=== PATIENT | female | born 1985 | race Caucasian/White ===

== ENCOUNTER 2024-10-10 11:41 | Emergency (ER) | payer OTHER, SELFPAY ==
[2024-10-10 12:30] VITALS: BP 132/78; PULSE 74; RESP 16; TEMP 36.6; O2SAT 100
[2024-10-10] MEDS: TETANUS,DIPHTHERIA,AC PERTUSSIS ADULT (0.5 ML) BOOSTRIX (12:38)
[2024-10-10] MEDS: LIDO 1%/EPINEPHRINE 1:100,000 20 ML VIAL (12:39)
--- OUTSIDE RECORDS SUMMARY | 2024-10-10 12:52 | XMS_ITS ---
Author Organization [facility] Address [address], [place] [id number] Care Team Providers Care Whirley Operator Name Role Phone HAVEN PRYOR Primary Care Provider REASON FOR VISIT 4 week FU Encounters Encounter Location Date Provider Diagnosis [facility] [address], [place] [id number] 01/02/2024 HAVEN PRYOR Plan Of Treatment No Information Progress Notes * Jaz JOHNSTON KDOB:1985 (39 yo F)Acc No.[id number]:01/02/2024 Progress Notes Patient: Adam GONSALES Amryan Gottlieb Provider: Yobany PRYOR MD :1985 A ge:38 Y S ex:Female Date:01/02/2024 Address:[address] [place], [place] [id number] Subjective: * Chief Complaints: * 1 . 4 week FU. * Medical History: Objective: * Vitals: Assessment: Plan: * Treatment: * * Electronic signature of CARITO PRYOR MD on 10/10/2024 at 12:52 PM CDT Sign off status: Pending * Provider: Yobany PRYOR MD Date: 01/02/2024 Generated for Asadi ng/Fageraldine/eTransmitting on: 10/10/2024 12:52 PM CDT
--- OUTSIDE RECORDS SUMMARY | 2024-10-10 12:52 | XMS_ITS | Patient Health Record ---
Author Organization [facility] Address [address] [place] [address] Care Team Providers Care Desulphurizer Operator Name Role Phone Lela White Primary Care Provider Unavailabl e Allergies No Known Allergies Reason For Referral No Information Medications Medication SIG (Take, Route, Frequency, Duration) Notes Start Date End Date Status Magnesium 300 MG 1 capsule with a aundrea l Orally Once a day Active Cetirizine HCl 10 MG 1 tablet Orally Onc e a day Active Flonase Allergy Relief 50 MCG/ACT 1 spray in each nostril Nasally Once a day Active traMADol HCl 50 MG 1 tablet as needed Orally Once a day Active Cyclobenzaprine HCl 10 MG 1 tablet Orall y three times daily Active Levonorgest-Eth Estrad 91-Da y 0.15-0.03 MG 1 tablet Orally Once a day Active Omeprazole 10 MG 1 capsule 30 minutes before morning meal Orally Once a day Active Plan Of Treatment No Information Insurance Providers Payer Name Payer Address Payer Phone Subscriber Number Group Number Insured Name Patient Relationship to Insured Coverage Start Date Coverage End Date [facility] PPO [address] [place], [place] [phone] [id number] Dionicio Andrea Spouse - patient is the spouse of the insured Medical (General) History Medical History History ICD Code psoriasis
--- OUTSIDE RECORDS SUMMARY | 2024-10-10 12:52 | XMS_ITS ---
Author Organization [facility] Address [address], [place] [phone] Care Team Providers Care Manual Training Teacher Name Role Phone HAVEN PRYOR Primary Care Provider YINKA MUNOZ Unavailable [phone] REASON FOR VISIT refills (deniz pt) Medications Medication SIG (Take, Route, Frequency, Duration) Notes Start Date End Date Status Cyclobenzaprine Hydrochlorid e 10 mg 1 tab(s) orally 3 times a day as needed for 90 days Active SUMAtriptan 100 mg 1 tab(s) orally once for 90 days PRN Active Encounters Encounter Location Date Provider Diagnosis [facility] [address], [place] [id number] 07/23/2024 YINKA MUNOZ Migraine G43.909 and Chronic neck pain M54.2 Assessments Encounter Date Diagnosis (ICD Code) Assessment Notes Treatment Notes Treatment Clinical Notes Section Notes 07/23/2024 Migraine (ICD-10 - G43.909) 07/23/2024 Chronic neck pain (ICD-10 - M54.2) Plan Of Treatment Medication Medication Name Sig Start Date Stop Date Notes Cyclobenzaprine Hydrochlorid e 10 mg 1 tab(s) orally 3 times a day as needed for 90 days SUMAtriptan 100 mg 1 tab(s) orally once for 90 days PRN Progress Notes * Jaz JOHNSTON KDOB:1985 (39 yo F)Acc No.[id number]:07/23/2024 Patient: Adam DRU Jaz Gottlieb :1985 A ge:39 Y S ex:Female Address[address] [place] [address] * Refills refill SUMAtriptan tablet, 100 mg, orally, 30, 1 tab(s), once, 90 days, Refills=3 refill Cyclobenzaprine Hydrochloride tablet, 10 mg, orally, 180, 1 tab(s), 3 times a day as needed, 90 days, Refills=3 * true * Date: Generated for Montez calero/Ernesto/Kayitting on: 0 10/10/2024 12:52 PM CDT
--- OUTSIDE RECORDS SUMMARY | 2024-10-10 12:53 | XMS_ITS | Patient Health Record ---
Author Organization [facility] [place] [place] Address [address], [place] [id number] Care Team Providers Care Forest Fire Specialist Supervisor Name Role Phone HAVEN WHITE Primary Care Provider YINKA MUNOZ Unavailable [phone] MARIOSHANE Unavailable [phone] Allergies No Known Allergies Results Component Value Reference Range Notes CBC With Diff Reviewed date:12/03/2023 03:23:50 PM Interpretation: Performing Lab: Notes/Report: REASON FOR EXAM? R42; R00.0; R06.00 WBC 5.9 3.6-11.5 10 3/UL RBC 4.89 3.74-5.08 10 6/UL HGB 15.3 11.5-15.2 G/DL HCT 46 34-44 % PLAT COUNT 260 151-407 10 3/UL MCV 94 81-98 FL MCH 31 28-34 PG MCHC 33 32-36 G/DL RDW-SD 43.8 35.4-50.0 FL RDW-CV 13.4 11.1-14.9 % MPV 7.5 8.1-12.4 FL NEUT % 56.7 LYMPH % 35.7 MONO % 4.1 EO % 3.2 BASO % 0.3 NEUT ABS 3.3 1.8-7.7 10 3/UL LYMPH ABS 2.1 1.0-4.0 10 3/UL MONO ABS 0.2 0.0-0.8 10 3/UL EO ABS 0.2 0.00-0.40 10 3/UL BASO ABS 0.0 0.00-0.20 10 3/UL [facility] CLIA ID: [id number] / [id number] Simone Lebron MD [address] [place] [address] THIS TEST WAS PERFORMED AT: [facility] Comprehensive Metabolic Profile (95472) Reviewed date:12/03/2023 03:23:50 PM Interpretation: Performing Lab: Notes/Report: REASON FOR EXAM? R42; R00.0; R06.00 NA 137 136-145 MMOL/L K 4.1 3.5-5.1 MMOL/L CL 106 98-107 MMOL/L CO2 21 21-31 MMOL/L ANION GAP 10.0 3.0-11.0 MMOL/L GLU RANDOM 83 BUN 5 7-25 MG/DL CREAT 0.83 0.60-1.20 MG/DL GLOM TAMIKA RATE 92 UNITS ML/MIN/1.73 M2 DISEASE. A GFR LESS THAN 15 IS CONSIDERED TO HAVE KIDNEY A GFR LESS THAN 60 IS CONSIDERED TO HAVE CHRONIC KIDNEY FAILURE. CALCULATED USING 4 PARAMETER MDRD (2000 REVISION). CA 9.9 8.6-10.3 MG/DL T PROT 7.8 6.4-8.9 G/DL ALB 4.6 3.5-5.7 G/DL GLOB 3.2 0.7-5.4 G/DL A/G 1.4 1.0-2.8 RATIO BILI T 0.4 0.3-1.0 MG/DL ALK PHOS 44 34-104 IU/L AST 23 13-39 IU/L ALT 22 7-52 IU/L THIS TEST WAS PERFORMED AT: [address], [place] [address] [facility] Simone Lebron MD CLIA ID: [id number] / [id number] D-Dimer ([id number]) Reviewed date:12/03/2023 03:23:50 PM Interpretation: Performing Lab: Notes/Report: REASON FOR EXAM? R42; R00.0; R06.00 D-DIMER 243 70-500 NG/MLFEU Simone Lebron MD [facility] THIS TEST WAS PERFORMED AT: [address] VALUE LESS THAN 500NG/ML FEU SUPPORTS ABSENCE OF [place] [address] REQUIRED. SIGNIFICANT THROMBOEMBOLIC EVENT. CLINICAL CORRELATION CLIA ID: [id number] / [id number] Magnesium (72381) Reviewed date:12/03/2023 03:23:50 PM Interpretation: Performing Lab: Notes/Report: REASON FOR EXAM? R42; R00.0; R06.00 MG 2.2 1.9-2.7 MG/DL THIS TEST WAS PERFORMED AT: [address], [place] [address] Simone Lebron MD CLIA ID: [id number] / [id number] EKG Reviewed date:12/09/2023 08:51:16 AM Interpretation:See report Performing Lab: Notes/Report: See report Holter Monitor (48 Hour) Reviewed date:12/24/2023 09:19:31 AM Interpretation:See report Performing Lab: Notes/Report: See report Test Serum Reviewed date:12/10/2023 01:35:44 PM Interpretation:Negative Performing Lab: Notes/Report: REASON FOR EXAM? N92.6 HCG (PREG TEST) NEGATIVE THIS TEST WAS PERFORMED AT: Simone Lebron MD [facility] [place] CLIA ID: [id number] / [id number] [place] [address] [address] Reason For Referral No Information Medications Medication SIG (Take, Route, Frequency, Duration) Notes Start Date End Date Status Flonase 50 mcg/inh 1 spray(s) intranasa lly once a day for 90 days Active SUMAtriptan 100 mg 1 tab(s) orally once for 90 days Active SUMAtriptan Succinate 6 mg/0.5 mL Inject 6mg subcutaneously once at onset of migraine, may repeat in 1 hour, Maximum 12mg in 24 hours for 30 days Active TraMADol Hydrochloride 50 mg 1 tab(s) orally Q 4-6 hr prn for 10 days 08/10/2024 Active Magnesium 1 tab(s) Orally Once Daily 100mg Active Ondansetron Hydrochloride 4 mg 1 tab(s) orally 3 times a day for 7 days PRN 07/09/2023 Active Wegovy (0.25 mg dose) 0.25 mg/0.5 mL (0.25 mg dose) 0.25mg subcutaneously once a week for 28 days 07/15/2023 Not-Taki ng Simpesse biphasic extended cycle TAKE 1 TABLET BY MOUTH DAILY for 91 Active Ondansetron Hydrochloride 8 mg 1 tab(s) orally once PRN 07/09/2023 Active Ventolin HFA 90 mcg/inh 2 puff(s) inhale d every 4-6 hours as needed for shortness of breath for 14 days 07/31/2023 Not-Taking biotin 2.5 mg 1 tab(s) orally once a day Active Cyclobenzaprine Hydrochloride 10 mg 1 tab(s) orally 3 times a day as needed for 90 days Active multivitamin Multiple Vitamins 1 tab(s) orally once a day Active predniSONE 10 mg 4 tabs for 3 days, t hen 3 tabs for 3 days, then 2 tabs for 3 days, then 1 tab for 3 days, then stop orally once a day for 12 days 07/31/2023 Not-Taking lisinopril 20 mg 1 tab(s) orally once a day for 90 days 12/08/2023 Active Needle 23g 1 , 100 for 90 days 11/21/2022 Active Zofran 8 mg 1 tab(s) orally 3 ti mes a day as needed for nausea for 14 day(s) PRN Not-Taking ZyrTEC 10 mg 1 tab(s) orally 2 ti mes a day Active omeprazole 20 mg 1 cap(s) orally two times daily for 90 days Active Immunizations Vaccine Route Administration Date Status Comme nts Fluarix Quadrivalent (6mo+) Unknown 02/21/2020 Administ ered Influenza Unknown 02/20/2016 Administered Influenza Unknown 02/17/2017 Administered Influenza Unknown 02/16/2018 Administered Influenza Unknown 02/17/2019 Administered Social History Tobacco Use: Social History Observation Description Date Details (start date - stop date) Never Smoker NA - NA Tobacco Use: Question Answer Notes Are you a: nonsmoker never smoked Alcohol Screening: Question Answer Notes Did you have a drink contain ing alcohol in the past year? Yes How often did you have a dri nk containing alcohol in the past year? Two to four times a month (2 points) How many drinks did you have on a typical day when you were drinking in the past year? 1 or 2 (0 points) How often did you have six o r more drinks on one occasion in the past year? Less than monthly (1 point) Points 3 Interpretation Positive Problems Problem Type SNOMED Code ICD Code Onset Dates Problem Status W/U Status Risk Notes Problem Chronic neck pain (4227578709578) Chronic neck pain (M54.2) Active confirmed Problem Gastroesophageal reflux disease (830770835) GERD (gastroesophage al reflux disease) (K21.9) Active confirmed Problem Migraine (10149295) Migraine (G43.909) Active confirmed Problem 5950552 Psoriasis (L40.9) Active confirmed Problem 63793644 Missed period (N92.6) Active confirmed Problem Chronic interstitial cystitis (327168904) Interstitial cystitis (N30.10) Active confirmed Problem 971505107 BMI 40.0-44.9, adult (Z68.41) Active confirmed Problem Seasonal allergic rhinitis (025806561) Seasonal allergic rhinitis (J30.2) Active confirmed Problem 64399555 Primary hypertension (I10) Active confirmed Problem 781631892 BMI 45.0-49.9, adult (Z68.42) Active confirmed Problem Obese class II (914987955853573) BMI 35.0-35.9,adult (Z68.35) Active confirmed Problem 441858104 Mild intermittent reactive airway disease without complication (J45.20) Active confirmed Vital Signs Heart Rate 96 /min 12/08/2023 Temperature 97.7 degrees Fahrenheit 12/08/2023 Respiratory Rate 20 /min 12/08/2023 Oximetry 98 12/08/2023 Blood pressure diastolic 78 mm Hg 12/08/2023 Height 63 in 12/08/2023 Blood pressure systolic 118 mm Hg 12/08/2023 Weight 221.6 lbs 12/08/2023 BMI 39.25 kg/m2 12/08/2023 Encounters Encounter Location Date Provider Diagnosis [facility] [address], [place] [id number] 12/09/2023 HAVEN WHITE Missed period N92.[address] [facility] [place] [place] [address], [place] [id number] 12/30/2023 HAVEN WHITE Chronic neck pain M54.[address] [facility] [place] [place] [address], [place] [id number] 07/23/2024 YINKA MUNOZ Migraine G43.909 and Chronic neck pain M54.2 [facility] [address], [place] [phone] 12/03/2023 [facility] [address], [place] [id number] 12/09/2023 HAVEN WHITE [facility] [address], [place] [id number] 12/08/2023 HAVEN WHITE Primary hypertension I10 and Palpitations R00.[address] [facility] [place] [place] [address], [place] [id number] 12/03/2023 SHANE MARTIN Dizziness R42 ; Tachycardia R00.0 and Dyspnea, unspecified type R06.00 Assessments Encounter Date Diagnosis (ICD Code) Assessment Notes Treatment Notes Treatment Clinical Notes Section Notes 12/03/2023 Dizziness (ICD-10 - R42) 12/03/2023 Tachycardia (ICD-10 - R00.0) 12/08/2023 Palpitations (ICD-10 - R00.2) Xochitl Sherman LPN 12/08/2023 03:42:01 PM CDT > scheduled for 12/09/23 at 245pm at 12/08/2023 Primary hypertension (ICD-10 - I10) 12/09/2023 Missed period (ICD-10 - N92.6) 12/30/2023 Chronic neck pain (ICD-10 - M54.2) 07/23/2024 Migraine (ICD-10 - G43.909) 07/23/2024 Chronic neck pain (ICD-10 - M54.2) 12/03/2023 Dyspnea, unspecified type (ICD-10 - R06.00) 12/03/2023 Other Orthostatic vital signs consistent wtih a significant rise in blood pressure. Will increase lisinopril, bloodwork. Did call Dr. White to discuss. ER indications reviewed with patient and she VU. Patient has close follow up with Dr. White scheduled. Plan Of Treatment No Information Medications Administered Medication Instructions Date of Administration Dosage Notes DEPO-Medrol 07/19/2022 80 mg dexAMETHasone 07/15/2022 6 mg triamcinolone 07/15/2022 60 mg Medical (General) History Medical History History ICD Code Earache Upper respiratory infection Last Mammogram: none on record (12-01-15) Last Pap: 09-04-11 Surgical History Surgery Date(Month/Year) Dx Scope- ovarian cyst Hospitalization History Reason Date(Month/Year) [facility] ER for left wrist injury 09-24
--- OUTSIDE RECORDS SUMMARY | 2024-10-10 12:53 | XMS_ITS | Data Portability ---
Author Organization [facility], [address] Neurology ([place]) Address [address] [place] [address] Care Team Providers Care Campus Dean Name Role Phone HAVEN PRYOR Primary Care Provider WENCESLAO RASMUSSEN Senior Software Systems Engineer GARY TRONCOSO Senior Software Systems Engineer Assessment No assessment recorded. Plan of Treatment Reminders Order Date Submit Date Provider Last Modified By Organization Details Last Modified Time Details Appointments Annual Well Woman Visit 15.EST 2024 03:30P M Wenceslao Rasmussen Not available Not available Not available Lab william sp + gardnerel la vaginalis + trichomon as vaginalis DNA panel, probe, vaginal fluid 2024 025 CHERYL [facility], [address] [place] [address], [id number], 07/19/2024 09:34:44 Referral None recorded. Procedures None recorded. Surgeries dilation and curettage with hysterosc opy (SURG) 2024 025 lteverbaug h2 Not available 08/31/2024 17:59:21 Imaging US, transvagi nal - heavy periods, evaluatin g for endometri al causes 2023 024 lvrchota [facility], [address] [place] [address], [id number], 10/04/2024 11:54:29 Medication Orders fluconazo le 150 mg tablet 2024 025 [id number], [address] [place], [place], [id number], 08/31/2024 14:47:00 Simpesse 0.15 mg-30 mcg (84)/10 mcg(7) tablets,3 month dose pack 2023 024 [facility] #[id number], [address], [place], [id number], 04/22/2024 13:59:34 Macrobid 100 mg capsule 2023 025 [id number], [address], [place], [id number], 07/13/2024 17:30:24 Patient TargetsNo targets recorded. 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 Will move forward with evaluation of the lining and the polyp through hysteroscopy D&C. Patient is not a good long-term candidate for control pills due to the fact that she suffers from hypertension and migraines and is over 35 years of age. Patient is not a candidate for an intrauterine device because she has a unicornuate uterus to control her heavy bleeding. Patient is not a candidate for an endometrial ablation again because she does not have normal anatomy of her uterus. Most likely once pathology is completed on the hysteroscopy and D&C we will pursue definitive therapy through hysterectomy retaining her ovaries. Not available 08/31/2024 17:53:46 Reason for Referral None Reported. Results Created Date Observation Date Name Description Value Unit Range Abnormal Flag Note LastModifiedBy Organization Detail LastModifiedTime 07/16/1907/16/2024 pregn gladis test, urine urine NEGATI VE negati ve (SENS ITIVI TY >99%) (SPEC IFICI TY >99%) Not Available [facility] [address] [place] [address], [id number], 07/16/2024 15:24:19 07/16/19 25 07/19/2024 gauri da sp + gardn erell a vagin dipesh + trich omona s vagin dipesh DNA panel , probe , vagin al fluid wet prep-DNA probe Not Available [facility] [address] [place] [address], [id number], 07/19/2024 09:34:44 07/16/19 25 07/19/2024 gauri da sp + gardn erell a vagin dipesh + trich omona s vagin dipesh DNA panel , probe , vagin al fluid bacterial vaginosis NEGATI VE negati ve Not Available [facility] [address] [place] [address], [id number], 07/19/2024 09:34:44 07/16/19 25 07/19/2024 gauri da sp + gardn erell a vagin dipesh + trich omona s vagin dipesh DNA panel , probe , vagin al fluid william krusei NEGATI VE negati ve A [place]i da sp. (C. albic ans, C. tropi calis , C. parap niko is, C. dubli emani is) resul t can be posit mavis due to one or multi ple [place]auri da speci es. This is a PCR assay that detec ts DNA targe ts to aid in the diagn osis of vagin al infec tions in women . A posit mavis resul t does not neces saril y indic ate the prese nce of viabl e organ isms and there fore can not be used to asses s thera peuti c succe ss. Not Available [facility] [address] [place] [address], [id number], 07/19/2024 09:34:44 02/07/19/2024 gauri da sp + gardn erell a vagin dipesh + trich omona s vagin dipesh DNA panel , probe , vagin al fluid trichomonas NEGATI VE negati ve Not Available [facility] [address] [place] [address], [id number], 07/19/2024 09:34:44 07/16/1907/19/2024 gauri da sp + gardn erell a vagin dipesh + trich omona s vagin dipesh DNA panel , probe , vagin al fluid william sp. NEGATI VE negati ve Not Available [facility] [address] [place] [address], [id number], 07/19/2024 09:34:44 07/16/19 25 07/19/2024 gauri da sp + gardn erell a vagin dipesh + trich omona s vagin dipesh DNA panel , probe , vagin al fluid william glabrata NEGATI VE negati ve Not Available [facility] [address] [place] [address], [id number], 07/19/2024 09:34:44 Result Notes None recorded. Problems Name Problem SNOMED Code Status Onset Date Resolution Date Notes Provider Name and Address Organization Details Recorded Time Migraine 34681993 Active 2023 Ceci Swartz [facility] 4 11:45:57 Dysmenorrhea 179583559 Active 2023 Wenceslao Rasmussen APRN [address] [place] [address], [phone], [facility] 4 13:58:51 Recurrent urinary tract infection 848127641 Active 2023 Wenceslao Rasmussen APRN [address] [place] [address], [phone], [facility] 4 13:59:46 Menorrhagia 126207419 Active 2023 Wenceslao Rasmussen APRN [address] [place] [address], [phone], [facility] 4 14:15:17 Vaginal irritation 073807317 Active 2024 Wenceslao Rasmussen, KIRSTEN [address] [place] [address], [phone], [facility] 5 16:03:09 White vaginal discharge 466554273 Active 2024 Wenceslao Rasmussen APRN [address] [place] [address], [phone], [facility] 5 16:10:15 Uterus unicornis 3591485 Active 2024 Gary sutherland MD [address] [place] [address], [phone], [facility] 5 17:54:13 Problem Notes None recorded. Procedures Surgical History Date Name Laterality Status Provider Name and Address Organization Details Recorded Time 3 Date of Last Pap Smear completed Ceci Maxime [facility] 04/20/2024 11:46:23 7 cystoscopy completed Nicole Land [facility] 08/31/2024 14:52:22 Imaging Results None recorded. Procedure Notes None recorded. Medical Equipment None Reported. Allergies No known drug allergies Medications Name Sig Start Date Stop Date Status Note LastModified by Organization Details LastModified Time cyclobenzap rine 10 mg tablet TAKE 1 TABLET BY MOUTH THREE TIMES DAILY NEEDED active Not Available Not Available No t Available fluconazole 150 mg tablet TAKE 1 TABLET BY MOUTH EVERY 72 HOURS 08/31 completed Not Available Not Available Not Available sumatriptan 100 mg tablet TAKE 1 TABLET BY MOUTH ONCE DIRECTED active Not Available Not Available No t Available lisinopril 20 mg tablet TAKE 1 TABLET BY MOUTH DAILY 08/31 completed Not Available Not Available Not Available tramadol 50 mg tablet TAKE 1 TABLET BY MOUTH EVERY 4 TO 6 HOURS NEEDED FOR 10 DAYS active Not Available Not Available No t Available triamcinolo ne acetonide 0.1 % topical cream APPLY A THIN LAYER TO THE AFFECTED AREA TWICE DAILY TO THREE TIMES DAILY FOR 14 DAYS 04/22 completed Not Available Not Available Not Available nitrofurant oin macrocrysta l 100 mg capsule TAKE ONE CAPSULE BY MOUTH AFTER INTERCOUR SE 04/20 completed Not Available Not Available Not Available lisinopril 10 mg tablet Take 1 tablet every day by oral route. active Not Available Not Available No t Available omeprazole 20 mg capsule,del ayed release TAKE 1 CAPSULE BY MOUTH DAILY active Not Available Not Available No t Available ondansetron 4 mg disintegrat ing tablet DISSOLVE 1 TABLET ON THE TONGUE THREE TIMES DAILY FOR 7 DAYS active Not Available Not Available No t Available fluticasone propionate 50 mcg/actuati on nasal spray,suspe nsion USE 1 SPRAY IN EACH NOSTRIL ONCE A DAY active Not Available Not Available No t Available amoxicillin 875 mg-potassiu m clavulanate 125 mg tablet TAKE 1 TABLET BY MOUTH EVERY 12 HOURS FOR 7 DAYS 04/20 completed Not Available Not Available Not Available Ventolin HFA 90 mcg/actuati on aerosol inhaler INHALE 2 PUFFS BY MOUTH EVERY 4 TO 6 HOURS FOR 14 DAYS NEEDED FOR SHORTNESS OF BREATH 04/22 completed Not Available Not Available Not Available nitrofurant oin monohydrate /macrocryst als 100 mg capsule TAKE 1 CAPSULE BY MOUTH DIRECTED AFTER INTERCOUR SE active Not Available Not Available No t Available Simpesse 0.15 mg-30 mcg (84)/10 mcg(7) tablets,3 month dose pack TAKE 1 TABLET BY MOUTH DAILY active Not Available Not Available No t Available Vitals Date Recorded Body height Body weight Systolic blood pressure Diastolic blood pressure Provider Name and Address Organization Details Last Updated DateTime 04/22/2024 160.02 cm 01994.25 g 116 mm[Hg] 68 mm[Hg] Ceci [facility] 04/22/2024 13:49:15 Date Recorded Body height Body mass index (BMI) Body weight Systolic blood pressure Diastolic blood pressure Provider Name and Address Organization Details Last Updated DateTime 07/16/2024 160.02 cm 33.5 kg/m2 82122.96 g 102 mm[Hg] 76 mm[Hg] [facility] 15:46:57 Date Recorded Body height Body mass index (BMI) Body weight Systolic blood pressure Diastolic blood pressure Provider Name and Address Organization Details Last Updated DateTime 08/31/2024 160.02 cm 32.4 kg/m2 53531.4 g 112 mm[Hg] 60 mm[Hg] Nicole Land [facility] 14:46:21 Social History Question Answer Notes LastModified by Organizat ion Details LastModified Time Tobacco Smoking Status Never Smoker Not Available Health Note 04/19/2024 22:51:12 Do You Have An Advance Directive? No [email or web address] Information not available 04/19/2024 What Is Your Level Of Caffeine Consumption? Occasional [email or web address] Information not available 04/19/2024 How Many Times Per Week Do You Exercise? 1-2 Times Per Week [email or web address] Information not available 04/19/2024 What Was The Date Of Your Most Recent Tobacco Screening? 04/22/2024 [email or web address] Information not available 04/19/2024 What Is Your Relationship Status? [email or web address] Information not available 04/19/2024 Are You Sexually Active? Yes Information not available 04/20/2024 Sex: Unknown Functional Status Question Answer Note LastModified by Organizat ion Details LastModified Time How many times per week do you consume alcohol? Less than 1 time per week [email or web address] Information not available 04/19/2024 Do you use any illicit or recreational drugs? No [email or web address] Information not available 04/19/2024 What is your level of alcohol consumption? Occasional [email or web address] Information not available 04/19/2024 Are you currently employed? 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 Occasional [email or web address] Information not available 04/19/2024 Mental Status None recorded. Family History Relationship Description Onset Age of this Age Resolved Age Notes LastModified by Organization Details LastModified Time Father Diabetes mellitus [email or web address] Not available 2023 22:51:11 Father Hypertensive disorder [email or web address] Not available 2023 22:51:11 Paternal Grandmother Diabetes mellitus [email or web address] Not available 2023 22:51:11 Mother Hypertensive disorder [email or web address] Not available 2023 22:51:11 Maternal Grandmother Hypertensive disorder [email or web address] Not available 2023 22:51:11 Paternal Grandfather Malignant neoplasm of prostate [email or web address] Not available 2023 14:01:27 Medical History Condition Response Diabetes N Anxiety Disorder N Bleeding Disorder N Attention-deficit Hyperactivity Disorder N High Blood Pressure N Arthritis N Hyperlipidemia N Cancer N Thyroid Problems N Stroke N Asthma N COPD N Depression N Anemia N Seizures N Heart Disease N Fibromyalgia N Osteoporosis N Kidney Disease N Gynecological History Statement/Question Response Abnormal Pap N Flow Heavy Date of LMP 07/05/2024 HPV Vaccine N Duration of Flow (days) 5 Age at Menarche 14 Current Control Method BCPs Frequency of Cycle (Q days) 20 Sexually Active? Y Menses Monthly Y Date of Last Pap Smear 03/26/2023 LMP Definite Hormone Replacement Therapy N Obstetrics History GPAL:G 0 P 0 0 0 0 Immunizations Vaccine Type Date Status Note Provider Nam e and Address Organization Details Recorded Time MMR 06/03/1991 completed Ceci Swartz [facility] 04/22/2024 13:46:59 MMR 09/09/1985 completed Ceci Swartz [facility] 04/22/2024 13:46:59 polio, unspecified formulation 1984 completed Ceci Swartz [facility] 04/22/2024 13:47:00 polio, unspecified formulation 1984 completed Ceci Swartz [facility] 04/22/2024 13:47:00 polio, unspecified formulation 10/30/1989 completed Ceci Hogue [facility] 04/22/2024 13:47:00 polio, unspecified formulation 1984 completed Ceci Swartz [facility] 04/22/2024 13:47:00 polio, unspecified formulation 11/11/1985 completed Ceci Swartz [facility] 04/22/2024 13:47:00 influenza, split (incl. purified surface antigen) 02/16/2018 completed Ceci Swartz [facility] 04/22/2024 13:47:00 influenza, split (incl. purified surface antigen) 02/17/2017 completed Ceci Swartz [facility] 04/22/2024 13:47:00 influenza, split (incl. purified surface antigen) 02/20/2016 completed Ceci Maxime null, [facility] 04/22/2024 13:47:00 DTaP, unspecified formulation 1984 [facility]24 13:47:00 DTaP, unspecified formulation 1984 completed Ceci Maxime null, [facility] 04/22/2024 13:47:00 DTaP, unspecified formulation 10/30/1989 completed Ceci Maxime null, [facility] 04/22/2024 13:47:00 DTaP, unspecified formulation 1984 completed Ceci Maxime null, [facility] 04/22/2024 13:47:00 DTaP, unspecified formulation 11/11/1985 [facility]2024 13:47:00 Influenza, split virus, quadrivalent, PF 02/21/2020 [facility] 13:47:00 Past Encounters Encounter ID Performer Location Encounter Start Date Encounter Closed Date Diagnosis/Indication Diagnosis SNOMED-CT Code Diagnosis ICD10 Code Diagnosis Note [id number] KIRSTEN Farris [facility] ([place]) [address] [facility],[address] [place] [address] 04/22/2024 13:30:38 04/22/2024 14:16:33 Dysmenorrhea 572046232 N94.6 Recurrent urinary tract infection 889562812 N39.0 Menorrhagia 697457149 N9 2.0 Female gen kristal finding 203545171 Z01.419 1. Cervical cancer screening- UTD . Mammogram- screening discussed- not currently indicated, but recommende d scheduling after her birthday3. Colon cancer screening- initiate age 45 screening4 . Immunizati on- annual flu, tetanus q10y5. Labs- no labs currently indicated6 . Medication - OCP and macrobid7. Contracept ion- OCP8. STI screening- not indicated nor requested9 . Menses- regular with use of OCPs10. Continue annual well woman and PCP exams [id number] KIRSTEN Farris [facility] ([place]) [address],[place] [address] 07/16/2024 14:49:08 07/16/2024 16:15:26 Menorrhagia 767332783 N92.0 went over ultrasound 2.85 mm endometria l thickness does not indicate a need for EMB at this timewill establish consult with physician for hysterecto my at earliest convenienc e Vaginal irritation 51454 6004 N89.8 White vagi nal discharge 310930742 N89.8 treat empiricall y given her symptoms and clinical presentati onwet prep obtained to evaluate for other causes [id number] MD Maria Del Carmen [facility] ([place]) [address] [address] 08/31/2024 14:04:03 09/01/2024 08:21:09 Menorrhagia 320197258 N92.0 Dysmenorrhea 670957654 N 94.6 Uterus unicornis 6221334 Q51.4 Health Concerns Section Related Observation LastModified by Organization Detai ls LastModified Time None Recorded Concern Status LastModified by Organization Details LastModified Time None Recorded Advance Directives Directive N: Payers Insurance Date Sequence Insurance Name Policy Number Policy Melendez Covered Member ID Melendez Member ID Guarantor Name 07/13/2024 1 [place] [id number] Dionicio Genao [facility] [id number] Jaz Andrea 09/01/2024 1 [facility] - ALLIED - [employer]IG[employer]ionicio [facility] [id number] Jaz Gottlieb [facility] Notes Date Note Type Note Provider Name and Address Organization Details Recorded Time 4 text/html annual examregular periods - on controlone period every three monthscycles are 3-4 days and moderate flowshe describes a desire to have an ablation or a hysterectomy due to the severity of her periods while not on controloverall happy on her control since she only has 4 periods per year which cuts down on the amount of bleeding she hasshe describes a history of recurrent UTIs for which she has been taking macrobid preventatively since her cysto with Dr. Sanchez in the past and has not had issues with recurrencePMH: chronic migraines and psoriasisfamily hx: prostate cancersocial hx: never smoker, occasional alcohol consumptionsurgical hx: cyto 2016 Wenceslao Rasmussen, APPEALS AND GENERALIST CLERK [address] [place] [address], [phone], [facility] 04/23/2024 09:27:45 5 text/html established patientsono prior and possible EMB pending sono resultshistory of menorrhagia - currently controlled with controlpatient would ultimately like a hysterectomydiscussed ablation, iud, d&c, depo, lysteda, continued contraception, hysterectomy as all viable options to control her periods in the past, briefly discussed again todayshe would ultimately like to have something permanent and after discussing ablation versus hysterectomy and her age in relation to these options and an ablation may not completely resolve her bleeding until menopause as it can only be guaranteed for 5 yearsdiscussed that d&c would not likely be a good option given how thin her endometrium isshe declines continued contraception, lysteda, and deposince the ultrasound looks good she would like to discuss her options with one of the physiciansshe has been experiencing symptoms of yeast including white thick discharge and itchingwill also evaluate today Wenceslao Rasmussen, APPEALS AND GENERALIST CLERK [address] [place] [address], [phone], [facility] 07/16/2024 16:41:20 5 text/html Patient has extremely painful periods. Patient's periods she passes clots and they are heavy and they last about 4 to 5 days. She gets extreme PMS symptoms such as fluid retention she has neck she gets the migraines during the menstrual cycle debilitating her. Patient also has migraines when she is not on her menstrual cycle she always has some during her menstrual cycle. Patient takes ibuprofen during her menstrual cycle for the cramping it helps a little she is also a heating pad. Migraine she has to use muscle relaxers and tramadol to get control of them. 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 When patient went on 3 months cycling with control it was nice because she did not have the periods for 3 months but then when she had to have her periods they are still extremely happy. Patient tried being on just the traditional control pill having monthly cycles but her periods were then just terrible every month and debilitating. Obviously patient does much better only happen to have the misery every 3 months. Patient and do not desire fertility. Gary Troncoso MD [address] [facility], [place], [address], [facility] 08/31/2024 18:04:22 OBGyn Episode No OBEpisode recorded.
--- OUTSIDE RECORDS SUMMARY | 2024-10-10 12:53 | XMS_ITS ---
Author Organization [facility] Address [address] [place], [place] [id number] Care Team Providers Care Commercial Instructor Supervisor Name Role Phone HAVEN PRYOR Primary Care Provider REASON FOR VISIT 4 week FU Encounters Encounter Location Date Provider Diagnosis [facility] [address] [place], [place] [id number] 02/10/2024 HAVEN PRYOR Plan Of Treatment No Information Progress Notes * Jaz JOHNSTON KDOB:1985 (39 yo F)Acc No.[id number]:02/10/2024 Progress Notes Patient: Adam GONSALES Amryan Gottlieb Provider: Yobany PRYOR MD :1985 A ge:38 Y S ex:Female Date:02/10/2024 Address:[address] [place], [place] [id number] Subjective: * Chief Complaints: * 1 . 4 week FU. * Medical History: Objective: * Vitals: Assessment: Plan: * Treatment: * * Electronic signature of CARITO PRYOR MD on 10/10/2024 at 12:52 PM CDT Sign off status: Pending * Provider: Yobany PRYOR MD Date: 02/10/2024 Generated for Asadi ng/Fageraldine/eTransmitting on: 10/10/2024 12:52 PM CDT
--- NOTE | 2024-10-10 14:15 | ED.GENADULT ---
HPI - General Adult General Chief complaint: Wound/Laceration Stated complaint: fall Time Seen by Provider: 10/10/24 12:26 History of Present Illness HPI narrative: 39-year-old female presented emergency department for evaluation after having a ground level fall in the shower. Patient states she slipped in the wet shower and did strike her chin. Patient states she was not heavy dizziness or lightheadedness prior to the injury. Patient denies any loss of consciousness secondary to the fall. Patient does have a mild headache and some jaw pain at the site of the injury/laceration. Patient denies any other pain or injury. Related Data Allergies Allergy/AdvReac Type Severity Reaction Status Date / Time No Known Allergies Allergy Verified 10/10/24 12:37 Review of Systems Review of Systems: All systems reviewed & are unremarkable except as noted in HPI and below Exam Narrative: APPEARANCE: Well appearing, no pain, no distress, well-nourished. HEAD: normocephalic, atraumatic. EYES: PERRLA/EOMI, conjunctivae clear. NOSE: Normal no drainage EARS:TMS clear with good light reflex. THROAT: Pharynx clear, no exudate. NECK: Supple. No adenopathy, no masses. RESPIRATORY: Airway patent, respirations nonlabored. Clear to auscultation bilaterally, no rales, rhonchi, wheezing. CARDIOVASCULAR: Regular rate and rhythm without murmurs rubs or gallops. ABDOMINAL: Soft, nontender, nondistended, normal bowel sounds MUSCULOSKELETAL: Moves all extremities. Strength/ROM intact, No edema, No calf tenderness. NEURO: Alert. Cranial nerves II through XII intact. Normal comprehensive neuro exam with normal for tobacco tandem gait and negative Romberg SKIN: Warm, dry. Normal Color Course Vital Signs Vital signs: Vital Signs Temperature 97.8 F 10/10/24 12:30 Pulse Rate 74 10/10/24 12:30 Respiratory Rate 16 10/10/24 12:30 Blood Pressure 132/78 10/10/24 12:30 Pulse Oximetry 100 10/10/24 12:30 Temperature 97.8 F 10/10/24 14:48 Pulse Rate 74 10/10/24 14:48 Respiratory Rate 16 10/10/24 14:48 Blood Pressure 126/76 10/10/24 14:48 Pulse Oximetry 100 10/10/24 14:48 Procedures Laceration Laceration 1: Time: 14:15 Site: face Size (cm): 4 Description: linear Depth: simple, single layer Local Anesthetic: lidocaine 1% and with epi Amount of anesthesia used (mL): 3 Pre-repair: wound explored, irrigated and irrigated extensively ====== Skin Level ====== Skin layer closed with: nylon Size (cm): 6-0 Number of sutures: 7 Technique: simple, interrupted ====== Subcutaneous Layer ====== ====== Muscle Layer ====== ====== Tendon Layer ====== Medical Decision Making MDM Narrative Medical decision making narrative: 39-year-old female presented emergency department for evaluation for mechanical fall resulting in a chin laceration. No concern for jaw fracture based on physical exam. Patient has no cervical spine tenderness to palpation patient has a normal comprehensive neuro exam. Laceration was repaired as described in the procedure note patient's tetanus was updated. Differential Diagnosis Differential Diagnosis: Facial laceration Vital Signs Vital Signs: Vital Signs Temperature 97.8 F 10/10/24 12:30 Pulse Rate 74 10/10/24 12:30 Respiratory Rate 16 10/10/24 12:30 Blood Pressure 132/78 10/10/24 12:30 Pulse Oximetry 100 10/10/24 12:30 Temperature 97.8 F 10/10/24 14:48 Pulse Rate 74 10/10/24 14:48 Respiratory Rate 16 10/10/24 14:48 Blood Pressure 126/76 10/10/24 14:48 Pulse Oximetry 100 10/10/24 14:48 Discharge Plan Discharge Clinical Impression: Laceration Patient Disposition: Home Condition: Stable Instructions: Antibiotic Form, Care For Your Stitches (ED), Laceration (ED) Additional Instructions: Sutures will need to be removed in 5-7 days. Have close follow-up with your primary care physician. Tylenol and ibuprofen for headache and for body ache. Wound care as directed. If you have any worsening symptoms then please call or return to the emergency department. Patient Language: [place] Follow-up/Referrals: PHYSICIAN NOT ON STAFF,NONSTAFF [Primary Care Provider] -
[2024-10-10] MEDS: IBUPROFEN 400 MG TABLET 800 MG PO (14:31)
[2024-10-10 14:48] VITALS: BP 126/76; PULSE 74; RESP 16; TEMP 36.6; O2SAT 100
== END 2024-10-10 14:48 | disposition home or self-care (01) ==
PROVIDERS: Emergency Provider Emergency Medicine
DX: S01.81XA Laceration without foreign body of other part of head, initial encounter (principal); W18.2XXA Fall in (into) shower or empty bathtub, initial encounter; Z23 Encounter for immunization
CPT/HCPCS: 12013; 90471; 90715; 99282; A9270; J2004